=== PATIENT | female | born 1950 | race American Indian/Alaskan Native ===

== ENCOUNTER 2017-03-18 09:17 | Outpatient (CLI) | payer MEDICARE ==
--- NOTE | 2017-03-18 11:22 | Ultrasound Report ---
BILATERAL DIGITAL DIAGNOSTIC MAMMOGRAM with CAD and LEFT BREAST ULTRASOUND: 03/18/17 CLINICAL: Palpable lump in the midline cleavage. COMPARISON:None. FINDINGS: There are bilateral scattered fibroglandular densities. A few bilateral scattered benign calcifications.No mass, architectural distortion or suspicious calcifications . No mammographic finding at a palpable marker in the cleavage. Ultrasound of each cleavage area demonstrated normal fat and no mass, cyst or shadowing. I examined the patient myself and felt no mass or lump. The perceived lump is apparently the sternum. IMPRESSION: Negative mammogram and negative ultrasound of the cleavage. BI-RADS CATEGORY: 2 -- Benign RECOMMENDATION: Clinical follow-up of the palpable area and routine mammographic screening in one year. ACR BI-RADS MAMMOGRAPHIC CODES: 0 = Needs additional imaging evaluation; 1 = Negative; 2 = Benign; 3 = Probably benign; 4 = Suspicious; 5 = Malignant; 6 = Known biopsy-proven malignancy COMMENT: 1. Dense breast tissue, i.e., adenosis, fibrocystic changes, etc., may obscure an underlying neoplasm. 2. Approximately 10% of cancers are not detected with mammography. 3. A negative mammography report should not delay biopsy if a clinically suspicious mass is present. COMMENT: Patient follow-up letters are generated by our [employer] application.
== END 2017-03-18 09:18 | disposition home or self-care (01) ==
LOC: SPVWC 09:17
PROVIDERS: ATTEND Advanced Practice Midwife
DX: N60.01 Solitary cyst of right breast (principal); R92.1 Mammographic calcification found on diagnostic imaging of breast; N63 Unspecified lump in breast
CPT/HCPCS: 76642; G0204; 77066

== ENCOUNTER 2019-01-06 09:04 | Emergency (ER) | payer MEDICARE ==
[2019-01-06] MEDS ORDERED: ZOFRAN ODT PO ONE (09:37)
[2019-01-06] MEDS ORDERED: PEPCID PO ONE (09:37)
[2019-01-06] MEDS ORDERED: BENTYL IM ONE (09:37)
[2019-01-06] MEDS ORDERED: ALUM-MAG HYDROX-SIMETH 200-200-20MG/5ML PO ONE (09:38)
[2019-01-06 09:58] LABS: Basophils % (Auto) 0.6 % (0.0-1.8); Eosinophils # (Auto) 0.2 K/mm3 (0.0-0.4); Eosinophils % (Auto) 2.7 % (0.0-4.3); Hematocrit 36.2 % (30.3-42.9); Hemoglobin 12.3 gm/dl (10.1-14.3); Lymphocytes # (Auto) 2.9 K/mm3 (1.2-5.4); Lymphocytes % (Auto) 45.2 % (13.4-35.0); Mean Corpuscular HGB Conc 34 % (30-34); Mean Corpuscular Volume 89 fl (79-97); Monocytes # (Auto) 0.4 K/mm3 (0.0-0.8); Monocytes % (Auto) 6.5 % (0.0-7.3); Platelet Count 181 K/mm3 (140-440); Red Blood Count 4.07 M/mm3 (3.65-5.03); Red Cell Distribution Width 13.9 % (13.2-15.2)
--- NOTE | 2019-01-06 10:14 | Emergency Department Report ---
ED Abdominal Pain HPI - General Chief Complaint: Abdominal Pain Stated Complaint: STOMACH PAIN Time Seen by Provider: 01/06/19 09:29 Source: patient Mode of arrival: Ambulatory Limitations: No Limitations - History of Present Illness Initial Comments: Patient is a 68-year-old Ele female past history of GERD who states for the past 3 days she's had some epigastric discomfort that she states is a burning sensation. She states this started after eating some chicken. Patient states she has some very mild nausea but had not had any vomiting or diarrhea. Patient denies fevers chills. Patient also has no history of any cough congestion. Patient is taking multiple mrvr-[id number] medications including Maalox, Tums and Pepcid and Pepto-Bismol with no relief. Severity scale (0 -10): 9 - Related Data Previous Rx's Medication Instructions Recorded Last Taken Type Cyclobenzaprine [Flexeril 10mg] 10 mg PO QHS #15 tablet 06/28/14 Unknown Rx HYDROcodone/APAP 5-325 [[place] 1 each PO Q6HR PRN #20 tablet 06/28/14 Unknown Rx 5/325] Naproxen [Naprosyn] 500 mg PO BID #20 tablet 07/26/16 Unknown Rx amLODIPine [Norvasc] 5 mg PO DAILY #30 tab 07/26/16 Unknown Rx Ondansetron [Zofran Odt] 4 mg PO Q8HR PRN #10 tab.rapdis 01/06/19 Unknown Rx Sucralfate [Carafate] 1 gm PO Q6HR 30 Days udc 01/06/19 Unknown Rx Allergies Allergy/AdvReac Type Severity Reaction Status Date / Time aspirin Allergy Vomiting Verified 06/28/14 09:29 morphine Allergy Vomiting Verified 06/28/14 09:29 msg Allergy Vomiting Uncoded 06/28/14 09:29 ED Review of Systems ROS: Stated complaint: STOMACH PAIN Other details as noted in HPI Comment: All other systems reviewed and negative ED Past Medical Hx - Past Medical History Previous Medical History?: Yes Hx Hypertension: Yes Additional medical history: high cholesterol - Surgical History Past Surgical History?: Yes Additional Surgical History: - Social History Smoking Status: Current Every Day Smoker Substance Use Type: None - Medications Home Medications: Home Medications Medication Instructions Recorded Confirmed Last Taken Type Cyclobenzaprine [Flexeril 10mg] 10 mg PO QHS #15 tablet 06/28/14 Unknown Rx HYDROcodone/APAP 5-325 [[place] 1 each PO Q6HR PRN #20 tablet 06/28/14 Unknown Rx 5/325] Naproxen [Naprosyn] 500 mg PO BID #20 tablet 07/26/16 Unknown Rx amLODIPine [Norvasc] 5 mg PO DAILY #30 tab 07/26/16 Unknown Rx Ondansetron [Zofran Odt] 4 mg PO Q8HR PRN #10 tab.rapdis 01/06/19 Unknown Rx Sucralfate [Carafate] 1 gm PO Q6HR 30 Days udc 01/06/19 Unknown Rx ED Physical Exam - General Limitations: No Limitations General appearance: alert, in no apparent distress - Head Head exam: Present: atraumatic, normocephalic - Eye Eye exam: Present: normal appearance - ENT ENT exam: Present: mucous membranes moist - Neck Neck exam: Present: normal inspection - Respiratory Respiratory exam: Present: normal lung sounds bilaterally. Absent: respiratory distress, wheezes, rales, rhonchi - Cardiovascular Cardiovascular Exam: Present: regular rate, normal rhythm. Absent: systolic murmur, diastolic murmur, rubs, gallop - GI/Abdominal GI/Abdominal exam: Present: soft, tenderness (epigastric), normal bowel sounds. Absent: distended, guarding, rebound - Extremities Exam Extremities exam: Present: normal inspection - Back Exam Back exam: Present: normal inspection - Neurological Exam Neurological exam: Present: alert, oriented X3 - Psychiatric Psychiatric exam: Present: normal affect, normal mood - Skin Skin exam: Present: warm, dry, intact, normal color. Absent: rash ED Course Vital Signs 01/06/19 09:09 Temperature 97.9 F Pulse Rate 96 H Respiratory 18 Rate Blood Pressure 151/84 O2 Sat by Pulse 97 Oximetry ED Medical Decision Making - Lab Data Result diagrams: 01/06/19 09:42 01/06/19 09:42 Lab Results 01/06/19 01/06/19 Range/Units 09:42 09:42 WBC 6.4 (4.5-11.0) K/mm3 RBC 4.07 (3.65-5.03) M/mm3 Hgb 12.3 (10.1-14.3) gm/dl Hct 36.2 (30.3-42.9) % MCV 89 (79-97) fl MCH 30 (28-32) pg MCHC 34 (30-34) % RDW 13.9 (13.2-15.2) % Plt Count 181 (140-440) K/mm3 Lymph % (Auto) 45.2 H (13.4-35.0) % Cocke % (Auto) 6.5 (0.0-7.3) % Eos % (Auto) 2.7 (0.0-4.3) % Baso % (Auto) 0.6 (0.0-1.8) % Lymph # 2.9 (1.2-5.4) K/mm3 Cocke # 0.4 (0.0-0.8) K/mm3 Eos # 0.2 (0.0-0.4) K/mm3 Baso # 0.0 (0.0-0.1) K/mm3 Seg Neutrophils % 45.0 (40.0-70.0) % Seg Neutrophils # 2.9 (1.8-7.7) K/mm3 Sodium 141 (137-145) mmol/L Potassium 4.5 (3.6-5.0) mmol/L Chloride 101.1 (98-107) mmol/L Carbon Dioxide 27 (22-30) mmol/L Anion Gap 17 mmol/L BUN 13 (7-17) mg/dL Creatinine 0.9 (0.7-1.2) mg/dL Estimated GFR > 60 ml/min BUN/Creatinine Ratio 14 % Glucose 117 H (65-100) mg/dL Calcium 9.7 (8.4-10.2) mg/dL Total Bilirubin 0.50 (0.1-1.2) mg/dL AST 11 (5-40) units/L ALT 9 (7-56) units/L Alkaline Phosphatase 71 (35-129) units/L Total Protein 7.3 (6.3-8.2) g/dL Albumin 4.0 (3.9-5) g/dL Albumin/Globulin Ratio 1.2 % Lipase 19 (13-60) units/L - Medical Decision Making Patient's laboratory studies are within normal limits. Patient to be started on Carafate and Zofran be discharged home. Critical care attestation.: If time is entered above; I have spent that time in minutes in the direct care of this critically ill patient, excluding procedure time. ED Disposition Clinical Impression: GERD (gastroesophageal reflux disease) Disposition: DC-01 TO HOME OR SELFCARE Is pt being admited?: No Does the pt Need Aspirin: No Condition: Stable Instructions: Diet for Ulcers and Gastritis (ED), Gastroesophageal Reflux Disease (ED) Referrals: DANIAL LOW MD [Staff Physician] - 3-5 Days Time of Disposition: 10:45
[2019-01-06 10:19] LABS: Alanine Aminotransferase 9 units/L (7-56); BUN/Creatinine Ratio 14; Blood Urea Nitrogen 13 mg/dL (7-17); Calcium 9.7 mg/dL (8.4-10.2); Hemolysis Index 8
[2019-01-06 11:13] VITALS: BP 142/86
== END 2019-01-06 11:12 | disposition home or self-care (01) ==
LOC: ED 09:04
DX: K21.9 Gastro-esophageal reflux disease without esophagitis (principal); E78.00 Pure hypercholesterolemia, unspecified; I10 Essential (primary) hypertension; Z88.8 Allergy status to other drugs, medicaments and biological substances; Z88.5 Allergy status to narcotic agent
CPT/HCPCS: 36415; 80053; 83690; 85025; 96372; 99283; J0500; Q0162

== ENCOUNTER 2019-08-20 22:25 | Emergency (ER) | payer MEDICARE ==
[2019-08-20 22:56] VITALS: BP 164/116
--- NOTE | 2019-08-20 23:36 | XRay Report ---
LEFT FOOT, 3 VIEWS INDICATION / CLINICAL INFORMATION: puncture wound with needle. COMPARISON: None available. FINDINGS: There is a thin metallic foreign object in the subcutaneous tissue of the heel, consistent with histo ry of patient accidentally stepping on a needle. I believe the tip of the needle is abutting or just within the inferior surface of the calcaneus. The remainder the foot is unremarkable. IMPRESSION: A needle is in the soft tissues of the heel. The tip appears to be barely within the plan tar surface of the calcaneal bone. Signer Name: Meli Tracy MD Signed: 08/20/2019 11:31 PM Workstation Name: [id number]
[2019-08-21] MEDS ORDERED: TETANUS,DIPH,PERTUSS(ACELL) VACCINE 0.5 ML SYRINGE IM ONE ×2 (00:11→02:57)
[2019-08-21] MEDS ORDERED: LIDOCAINE-MPF (1%) 10 MG/1 ML VIAL 5 ML INFILTRATI ONE (00:11)
[2019-08-21] MEDS ORDERED: ACETAMINOPHEN 500 MG TAB PO ONE (00:11)
[2019-08-21] MEDS ORDERED: NEOMY 3.5 MG/BACIT 400 UNITS/POLY B 5000 UNITS/GM OINT PACKET TP ONE (02:31)
--- NOTE | 2019-08-21 02:44 | Emergency Department Report ---
<REZA HARRIS - Last Filed: 08/21/19 02:39> ED Lower Extremity HPI - General Chief Complaint: Extremity Injury, Lower Stated Complaint: NEEDLE BROKE OFF IN FOOT Source: patient Mode of arrival: Ambulatory Limitations: No Limitations - History of Present Illness Initial Comments: Patient is a 69-year-old -[place] female with a history of hypertension who presents to the ED with complaint of acute onset persistent left plantar foot pain due to a puncture wound after she stepped onto a sharp needle that was in the carpet about 2 hours ago. Patient states that the needle is stuck and embedded in the plantar aspect of her left foot, and that the pain is worse with ambulation or bearing weight on the left foot. Patient states that she is not up-to-date with her tetanus vaccinations. Patient denies numbness or tingling or weakness of left foot or left ankle. MD Complaint: foot injury (left plantar foot puncture wound), other (Stepped on a sharp needle that got stuck in the plantar foot) -: Sudden, hour(s) (2) Injury: Foot: Left (Left plantar foot puncture wound with foreign body) Type of Injury: laceration (Puncture wound), puncture wound Place: home Severity: severe Severity scale (0 -10): 7 Improves With: rest Worsens With: weight bearing, movement, palpation Context: direct blow, stepped on nail (stepped on a needle) Associated Symptoms: able to partially bear weight - Related Data Previous Rx's Medication Instructions Recorded Last Taken Type Cyclobenzaprine [Flexeril 10mg] 10 mg PO QHS #15 tablet 06/28/14 Unknown Rx HYDROcodone/APAP 5-325 [[place] 1 each PO Q6HR PRN #20 tablet 06/28/14 Unknown Rx 5/325] amLODIPine [Norvasc] 5 mg PO DAILY #30 tab 07/26/16 Unknown Rx Ondansetron [Zofran Odt] 4 mg PO Q8HR PRN #10 tab.rapdis 01/06/19 Unknown Rx Sucralfate [Carafate] 1 gm PO Q6HR 30 Days udc 01/06/19 Unknown Rx Ciprofloxacin HCl [Ciprofloxacin 500 mg PO Q12HR #20 tab 08/21/19 Unknown Rx TAB] Naproxen [Naprosyn TAB] 500 mg PO Q12H PRN #20 tablet 08/21/19 Unknown Rx Ondansetron [Zofran Odt] 4 mg PO Q6HR PRN #15 tab.rapdis 08/21/19 Unknown Rx traMADol [Ultram] 50 mg PO Q6HR PRN #12 tablet 08/21/19 Unknown Rx Allergies Allergy/AdvReac Type Severity Reaction Status Date / Time aspirin Allergy Vomiting Verified 06/28/14 09:29 morphine Allergy Vomiting Verified 06/28/14 09:29 msg Allergy Vomiting Uncoded 06/28/14 09:29 ED Review of Systems Constitutional: denies: chills, fever Eyes: denies: eye pain, eye discharge, vision change ENT: denies: ear pain, throat pain Respiratory: denies: cough, shortness of breath, wheezing Cardiovascular: denies: chest pain, palpitations Endocrine: no symptoms reported Gastrointestinal: denies: abdominal pain, nausea, diarrhea Genitourinary: denies: urgency, dysuria, discharge Musculoskeletal: arthralgia (left plantar foot pain due to a puncture wound and foreign body in plantar foot). denies: back pain, joint swelling Skin: other (Left plantar foot puncture wound with foreign body embedded in the plantar aspect of foot). denies: rash, lesions Neurological: denies: headache, weakness, paresthesias Psychiatric: denies: anxiety, depression Hematological/Lymphatic: denies: easy bleeding, easy bruising ED Past Medical Hx - Past Medical History Hx Hypertension: Yes Additional medical history: high cholesterol - Surgical History Additional Surgical History: - Social History Smoking Status: Never Smoker Substance Use Type: None - Medications Home Medications: Home Medications Medication Instructions Recorded Confirmed Last Taken Type Cyclobenzaprine [Flexeril 10mg] 10 mg PO QHS #15 tablet 06/28/14 Unknown Rx HYDROcodone/APAP 5-325 [[place] 1 each PO Q6HR PRN #20 tablet 06/28/14 Unknown Rx 5/325] amLODIPine [Norvasc] 5 mg PO DAILY #30 tab 07/26/16 Unknown Rx Ondansetron [Zofran Odt] 4 mg PO Q8HR PRN #10 tab.rapdis 01/06/19 Unknown Rx Sucralfate [Carafate] 1 gm PO Q6HR 30 Days udc 01/06/19 Unknown Rx Ciprofloxacin HCl [Ciprofloxacin 500 mg PO Q12HR #20 tab 08/21/19 Unknown Rx TAB] Naproxen [Naprosyn TAB] 500 mg PO Q12H PRN #20 tablet 08/21/19 Unknown Rx Ondansetron [Zofran Odt] 4 mg PO Q6HR PRN #15 tab.rapdis 08/21/19 Unknown Rx traMADol [Ultram] 50 mg PO Q6HR PRN #12 tablet 08/21/19 Unknown Rx ED Physical Exam - General Limitations: No Limitations General appearance: alert, in no apparent distress - Head Head exam: Present: atraumatic, normocephalic, normal inspection - Eye Eye exam: Present: normal appearance, PERRL, EOMI Pupils: Present: normal accommodation - ENT ENT exam: Present: normal exam, normal orophraynx, mucous membranes moist, TM's normal bilaterally, normal external ear exam - Neck Neck exam: Present: normal inspection, full ROM - Respiratory Respiratory exam: Present: normal lung sounds bilaterally. Absent: respiratory distress, wheezes, rales, chest wall tenderness, decreased breath sounds - Cardiovascular Cardiovascular Exam: Present: regular rate, normal rhythm, normal heart sounds. Absent: systolic murmur, diastolic murmur, rubs, gallop - GI/Abdominal GI/Abdominal exam: Present: soft, normal bowel sounds. Absent: tenderness, guarding, rebound, hypoactive bowel sounds - Extremities Exam Extremities exam: Present: normal inspection, tenderness (Left plantar foot tenderness due to puncture wound and embedded foreign body), normal capillary refill - Back Exam Back exam: Present: normal inspection, full ROM - Neurological Exam Neurological exam: Present: alert, oriented X3, CN II-XII intact, normal gait, reflexes normal - Psychiatric Psychiatric exam: Present: normal affect, normal mood - Skin Skin exam: Present: warm, dry, intact, normal color, other (Puncture wound of left plantar foot due to foreign body in left plantar foot). Absent: rash ED Course - Reevaluation(s) Reevaluation #1: 08/21/19 02:46 This is a 69-year-old female who presented to the ED with the left plantar foot puncture wound and an monique embedded in the soft tissues of the left plantar foot after she accidentally stepped on a needle on the carpet over 12 hours ago. In the ED, patient is alert and oriented 3 and is not in distress. Patient was treated for pain and also received booster tetanus vaccination. Left foot x-ray shows a needle in the soft tissues of the heel. The tip appears to be barely within the plantar surface of the calcaneal bone. The needle was probed after a local anesthetic was applied to the area. Removal of the needle was not successful in the ED. Therefore the x-ray images of the left foot was sent to the orthopedic surgeon property utilization officer Dr. Messina was advised the patient left foot was splinted, and the patient be [id number], and to follow-up with his office for further evaluation. Patient's left foot was splinted with Waldo wrap and patient given crutches and advised to contact Dr. Messina's office first thing in the morning to schedule an appointment for follow-up. Patient was advised not to bear weight on the left foot. Patient was discharged home on pain medications and advised follow-up with Dr. Messina's office for further evaluation. ED Lower Extremity MDM - Radiology Data Radiology results: report reviewed, image reviewed Findings [address] [address] XRay Report Signed Patient: ALY WHITNEY MR#: [id number] : 1950 Acct:[id number] Age/Sex: 69 / F ADM Date: 08/20/19 Loc: ED Attending Dr: Ordering Physician: WALDO PEREZ NP Date of Service: 08/20/19 Procedure(s): XR foot 3+V LT Accession Number(s): [id number] cc: WALDO PEREZ NP Fluoro Time In Minutes: LEFT FOOT, 3 VIEWS INDICATION / CLINICAL INFORMATION: puncture wound with needle. COMPARISON: None available. FINDINGS: There is a thin metallic foreign object in the subcutaneous tissue of the heel, consistent with history of patient accidentally stepping on a needle. I believe the tip of the needle is abutting or just within the inferior surface of the calcaneus. The remainder the foot is unremarkable. IMPRESSION: A needle is in the soft tissues of the heel. The tip appears to be barely within the plantar surface of the calcaneal bone. Signer Name: Meli Tracy MD Signed: 08/20/2019 11:31 PM Workstation Name: [id number] Transcribed By: Dictated By: Meli Tracy MD Electronically Authenticated By: Meli Tracy MD Signed Date/Time: 08/20/192330 DD/ 27 TD/TT: - Medical Decision Making This is a 69-year-old female who presented to the ED with the left plantar foot puncture wound and an monique embedded in the soft tissues of the left plantar foot after she accidentally stepped on a needle on the carpet over 12 hours ago. In the ED, patient is alert and oriented 3 and is not in distress. Patient was treated for pain and also received booster tetanus vaccination. Left foot x-ray shows a needle in the soft tissues of the heel. The tip appears to be barely within the plantar surface of the calcaneal bone. The needle was probed after a local anesthetic was applied to the area. Removal of the needle was not successful in the ED. Therefore the x-ray images of the left foot was sent to the orthopedic surgeon property utilization officer Dr. Messina was advised the patient left foot was splinted, and the patient be [id number], and to follow-up with his office for further evaluation. Patient's left foot was splinted with Waldo wrap and patient given crutches and advised to contact Dr. Messina's office first thing in the morning to schedule an appointment for follow-up. Patient was advised not to bear weight on the left foot. Patient was discharged home on pain medications and advised follow-up with Dr. Messina's office for further evaluation - Differential Diagnosis Left foot puncture wound; Foreign body in left foot ED Disposition Clinical Impression: Puncture wound of left foot with foreign body Qualifiers: Encounter type: initial encounter Qualified Code(s): S91.342A - Puncture wound with foreign body, left foot, initial encounter Disposition: DC-01 TO HOME OR SELFCARE Is pt being admited?: No Does the pt Need Aspirin: No Condition: Stable Instructions: Soft Tissue Foreign Body (ED), Puncture Wound (ED) Additional Instructions: Take medications with food, drink plenty of fluids, follow up with Dr. Messina as advised. Contact his office first thing in the morning to schedule an appointment Prescriptions: Ciprofloxacin HCl [Ciprofloxacin TAB] 500 mg PO Q12HR #20 tab Naproxen [Naprosyn TAB] 500 mg PO Q12H PRN #20 tablet PRN Reason: Pain , Severe (7-10) traMADol [Ultram] 50 mg PO Q6HR PRN #12 tablet PRN Reason: Pain Ondansetron [Zofran Odt] 4 mg PO Q6HR PRN #15 tab.rapdis PRN Reason: Nausea Referrals: GEOVANNA MESSINA MD [Staff Physician] - [facility] Time of Disposition: 02:51 Print Language: WELSH <SAILAJA TAN - Last Filed: 08/21/19 04:02> ED Review of Systems ROS: Stated complaint: NEEDLE BROKE OFF IN FOOT Other details as noted in HPI ED Course Vital Signs 08/20/19 22:53 Temperature 98.6 F Pulse Rate 99 H Respiratory 18 Rate Blood Pressure 164/116 O2 Sat by Pulse 99 Oximetry - Consultations Consultation #1: 08/21/19 management was discussed with Dr messina prior to d/c. Instructed to splint, make non weight bearing and f/u. pt may need OR removal of foreign body Critical care attestation.: If time is entered above; I have spent that time in minutes in the direct care of this critically ill patient, excluding procedure time.
[2019-08-21] MEDS ORDERED: ACETAMINOPHEN 500 MG TAB ONE (02:57)
== END 2019-08-20 23:35 | disposition home or self-care (01) ==
LOC: ED 22:25
DX: S91.342A Puncture wound with foreign body, left foot, initial encounter (principal); I10 Essential (primary) hypertension; E78.00 Pure hypercholesterolemia, unspecified; Z79.899 Other long term (current) drug therapy; Z88.6 Allergy status to analgesic agent; Z88.5 Allergy status to narcotic agent; Z88.8 Allergy status to other drugs, medicaments and biological substances; W46.1XXA Contact with contaminated hypodermic needle, initial encounter; Y93.89 Activity, other specified; Y92.009 Unspecified place in unspecified non-institutional (private) residence as the place of occurrence of the external cause; Y99.8 Other external cause status
CPT/HCPCS: 90471; 90715; A6250

== ENCOUNTER 2021-09-18 10:48 | Emergency (ER) | payer MEDICAID, MEDICARE ==
--- NOTE | 2021-09-18 11:43 | Emergency Department Report ---
ED N/V/D HPI - General Chief complaint: Nausea/Vomiting/Diarrhea Stated complaint: STOMACH PAIN Time Seen by Provider: 09/18/21 11:01 Source: patient Mode of arrival: Ambulatory Limitations: No Limitations - History of Present Illness Initial comments: Chief complaint: Diarrhea for 4 days HPI: This is a 71-year-old female with history of hypertension, gastritis, GERD who presents with diarrhea and stomach upset for several days. She has history of food intolerance. She has not been compliant with PPI which she takes daily. She has had severe diarrhea. She denies pain GI fever. She is actually quite hungry. She was finally able to have chicken soup without immediate stool. She thinks she has a stomach nug. She self treated Kaopectate and electrolyte containing fluid. MD complaint: diarrhea -: Gradual, days(s) (4 days) Description of Diarrhea: water Associated Abdominal Pain: No Severity: moderate Pain Scale: 0 Worsens with: other (Diarrhea after eating) Context: possible food poisoning - Related Data Previous Rx's Medication Instructions Recorded Last Taken Type Cyclobenzaprine [Flexeril 10mg] 10 mg PO QHS #15 tablet 06/28/14 Unknown Rx HYDROcodone/APAP 5-325 [Circle 1 each PO Q6HR PRN #20 tablet 06/28/14 Unknown Rx 5/325] amLODIPine [Norvasc] 5 mg PO DAILY #30 tab 07/26/16 Unknown Rx Ondansetron [Zofran Odt] 4 mg PO Q8HR PRN #10 tab.rapdis 01/06/19 Unknown Rx Sucralfate [Carafate] 1 gm PO Q6HR 30 Days udc 01/06/19 Unknown Rx Ciprofloxacin HCl [Ciprofloxacin 500 mg PO Q12HR #20 tab 08/21/19 Unknown Rx TAB] Naproxen [Naprosyn TAB] 500 mg PO Q12H PRN #20 tablet 08/21/19 Unknown Rx Ondansetron [Zofran Odt] 4 mg PO Q6HR PRN #15 tab.rapdis 08/21/19 Unknown Rx traMADoL [Ultram] 50 mg PO Q6HR PRN #12 tablet 08/21/19 Unknown Rx Lansoprazole [Prevacid] 30 mg PO BID #30 colt. 04/21/21 Unknown Rx Ciprofloxacin HCl 500 mg PO BID 3 Days #6 tablet 09/18/21 Unknown Rx Loperamide [Imodium] 2 tab PO QID 2 Days #16 capsule 09/18/21 Unknown Rx Allergies Allergy/AdvReac Type Severity Reaction Status Date / Time aspirin Allergy Vomiting Verified 06/28/14 09:29 morphine Allergy Vomiting Verified 06/28/14 09:29 msg Allergy Vomiting Uncoded 06/28/14 09:29 ED Review of Systems ROS: Stated complaint: STOMACH PAIN Other details as noted in HPI Comment: All other systems reviewed and negative Constitutional: denies: chills, fever, malaise Respiratory: denies: cough, shortness of breath Cardiovascular: denies: chest pain Gastrointestinal: diarrhea. denies: abdominal pain, nausea, vomiting ED Past Medical Hx - Past Medical History Previous Medical History?: Yes Hx Hypertension: Yes Additional medical history: high cholesterol - Surgical History Past Surgical History?: Yes Additional Surgical History: - Social History Smoking Status: Never Smoker Substance Use Type: None - Medications Home Medications: Home Medications Medication Instructions Recorded Confirmed Last Taken Type Cyclobenzaprine [Flexeril 10mg] 10 mg PO QHS #15 tablet 06/28/14 Unknown Rx HYDROcodone/APAP 5-325 [Circle 1 each PO Q6HR PRN #20 tablet 06/28/14 Unknown Rx 5/325] amLODIPine [Norvasc] 5 mg PO DAILY #30 tab 07/26/16 Unknown Rx Ondansetron [Zofran Odt] 4 mg PO Q8HR PRN #10 tab.rapdis 01/06/19 Unknown Rx Sucralfate [Carafate] 1 gm PO Q6HR 30 Days udc 01/06/19 Unknown Rx Ciprofloxacin HCl [Ciprofloxacin 500 mg PO Q12HR #20 tab 08/21/19 Unknown Rx TAB] Naproxen [Naprosyn TAB] 500 mg PO Q12H PRN #20 tablet 08/21/19 Unknown Rx Ondansetron [Zofran Odt] 4 mg PO Q6HR PRN #15 tab.rapdis 08/21/19 Unknown Rx traMADoL [Ultram] 50 mg PO Q6HR PRN #12 tablet 08/21/19 Unknown Rx Lansoprazole [Prevacid] 30 mg PO BID #30 colt. 04/21/21 Unknown Rx Ciprofloxacin HCl 500 mg PO BID 3 Days #6 tablet 09/18/21 Unknown Rx Loperamide [Imodium] 2 tab PO QID 2 Days #16 capsule 09/18/21 Unknown Rx ED Physical Exam - General Limitations: No Limitations General appearance: alert, in no apparent distress, other (Well-appearing no acute distress) - Head Head exam: Present: atraumatic, normocephalic - Eye Eye exam: Present: normal appearance - ENT ENT exam: Present: mucous membranes moist - Neck Neck exam: Present: normal inspection, full ROM - Respiratory Respiratory exam: Present: normal lung sounds bilaterally. Absent: respiratory distress, wheezes, rales, rhonchi - Cardiovascular Cardiovascular Exam: Present: regular rate, normal rhythm, normal heart sounds. Absent: systolic murmur, diastolic murmur, rubs, gallop - GI/Abdominal GI/Abdominal exam: Present: soft, normal bowel sounds. Absent: distended, tenderness, guarding, rebound - Extremities Exam Extremities exam: Present: normal inspection - Neurological Exam Neurological exam: Present: alert, oriented X3 - Psychiatric Psychiatric exam: Present: normal affect, normal mood - Skin Skin exam: Present: warm, dry, intact, normal color. Absent: rash ED Course Vital Signs 09/18/21 10:55 Temperature 98.3 F Pulse Rate 84 Respiratory 18 Rate Blood Pressure 141/66 [Left] O2 Sat by Pulse 99 Oximetry ED Medical Decision Making - Medical Decision Making Current impression food poisoning with significant diarrhea began 3 days antibiotics are indicated. 3-day course of ciprofloxacin prescribed. Loperamide also prescribed. Critical care attestation.: If time is entered above; I have spent that time in minutes in the direct care of this critically ill patient, excluding procedure time. ED Disposition Clinical Impression: Food poisoning Disposition: 01 HOME / SELF CARE / HOMELESS Is pt being admited?: No Does the pt Need Aspirin: No Condition: Stable Instructions: Food Poisoning Prescriptions: Ciprofloxacin HCl 500 mg PO BID 3 Days #6 tablet Loperamide [Imodium] 2 tab PO QID 2 Days #16 capsule
[2021-09-18 12:59] VITALS: BP 117/77
== END 2021-09-18 12:58 | disposition home or self-care (01) ==
LOC: ED 10:48
DX: A05.9 Bacterial foodborne intoxication, unspecified (principal); I10 Essential (primary) hypertension; K21.9 Gastro-esophageal reflux disease without esophagitis; K90.49 Malabsorption due to intolerance, not elsewhere classified; E78.00 Pure hypercholesterolemia, unspecified; F17.200 Nicotine dependence, unspecified, uncomplicated; Z88.5 Allergy status to narcotic agent; Z88.8 Allergy status to other drugs, medicaments and biological substances; Z91.018 Allergy to other foods
CPT/HCPCS: 99282

== ENCOUNTER 2022-06-08 08:49 | Emergency (ER) | payer MEDICARE, MEDICAID ==
--- NOTE | 2022-06-08 10:53 | Cat Scan Report ---
CT BRAIN: 06/08/2022 INDICATION / CLINICAL INFORMATION: head injury. COMPARISON: None available. FINDINGS: BRAIN/INTRACRANIAL STRUCTURES: Unenhanced CT images of the brain demonstrate no evidence of acute abn ormality. Ventricles and sulci are prominent in size, consistent with age-related atrophic change. Extensive chronic white matter hypoattenuation is present throughout the cerebral hemispheric white m atter. There is no evidence of acute large vessel ischemic injury, hemorrhage, or mass. There are no abnorma l extra-axial fluid collections. EXTRACRANIAL STRUCTURES: Unremarkable. IMPRESSION: No acute abnormality. Chronic and age-related changes. All CT scans at this location are performed using dose reduction to ALARA by means of automated expos ure control. Signer Name: Shankar Navarro MD Signed: 06/08/2022 10:48 AM Workstation Name: [id number]
[2022-06-08 11:05] LABS: Hematocrit 33.7 % (30.3-42.9); Hemoglobin 11.1 gm/dl (10.1-14.3); Mean Corpuscular HGB Conc 33 % (30-34); Mean Corpuscular Volume 92 fl (79-97); Platelet Count 163 K/mm3 (140-440); Red Blood Count 3.66 M/mm3 (3.65-5.03); Red Cell Distribution Width 14.1 % (13.2-15.2)
[2022-06-08 11:16] LABS: Alanine Aminotransferase 10 units/L (7-56); Albumin 3.9 g/dL (3.9-5); BUN/Creatinine Ratio 34; Blood Urea Nitrogen 34 mg/dL (7-17); Calcium 9.2 mg/dL (8.4-10.2); Hemolysis Index 3
--- NOTE | 2022-06-08 22:10 | Emergency Department Report ---
ED Dizziness HPI - General Chief Complaint: Syncope Stated Complaint: HEAD INJURY 2 DAYS AGO/LIGHT HEADED Time Seen by Provider: 06/08/22 21:51 Source: patient Mode of arrival: Ambulatory Limitations: No Limitations - History of Present Illness Initial Comments: 72 yo F with h/o HTn currently on Amlodipine who present for evaluation after a fall 2 days while at grocery store. Pt reports dizziness before the fall. She described it as falling backward and then struck the back of her head. EMS was called and patient screened to be okay. She says she has not eating anything all day and was just at the store to get some water before the symptoms. Pt also mentioned that she has been trying fats free diet and trying to eat healthy. She also mentioned that she has not taken her antihypertensive medication before the fall either. No other modifying or associated factors reported. MD Complaint: dizziness - Related Data Previous Rx's Medication Instructions Recorded Last Taken Type Cyclobenzaprine [Flexeril 10mg] 10 mg PO QHS #15 tablet 06/28/14 Unknown Rx HYDROcodone/APAP 5-325 [[place] 1 each PO Q6HR PRN #20 tablet 06/28/14 Unknown Rx 5/325] amLODIPine [Norvasc] 5 mg PO DAILY #30 tab 07/26/16 Unknown Rx Ondansetron [Zofran Odt] 4 mg PO Q8HR PRN #10 tab.rapdis 01/06/19 Unknown Rx Sucralfate [Carafate] 1 gm PO Q6HR 30 Days udc 01/06/19 Unknown Rx Ciprofloxacin HCl [Ciprofloxacin 500 mg PO Q12HR #20 tab 08/21/19 Unknown Rx TAB] Naproxen [Naprosyn TAB] 500 mg PO Q12H PRN #20 tablet 08/21/19 Unknown Rx Ondansetron [Zofran Odt] 4 mg PO Q6HR PRN #15 tab.rapdis 08/21/19 Unknown Rx traMADoL [Ultram] 50 mg PO Q6HR PRN #12 tablet 08/21/19 Unknown Rx Lansoprazole [Prevacid] 30 mg PO BID #30 capsule. 04/21/21 Unknown Rx Ciprofloxacin HCl 500 mg PO BID 3 Days #6 tablet 09/18/21 Unknown Rx Loperamide [Imodium] 2 tab PO QID 2 Days #16 capsule 09/18/21 Unknown Rx Allergies Allergy/AdvReac Type Severity Reaction Status Date / Time aspirin Allergy Vomiting Verified 06/28/14 09:29 morphine Allergy Vomiting Verified 06/28/14 09:29 msg Allergy Vomiting Uncoded 06/28/14 09:29 ED Review of Systems ROS: Stated complaint: HEAD INJURY 2 DAYS AGO/LIGHT HEADED Other details as noted in HPI Comment: All other systems reviewed and negative Cardiovascular: other (dizziness) Neurological: other (dizziness) ED Past Medical Hx - Past Medical History Hx Hypertension: Yes Additional medical history: high cholesterol - Surgical History Additional Surgical History: - Social History Smoking Status: Never Smoker - Medications Home Medications: Home Medications Medication Instructions Recorded Confirmed Last Taken Type Cyclobenzaprine [Flexeril 10mg] 10 mg PO QHS #15 tablet 06/28/14 Unknown Rx HYDROcodone/APAP 5-325 [[place] 1 each PO Q6HR PRN #20 tablet 06/28/14 Unknown Rx 5/325] amLODIPine [Norvasc] 5 mg PO DAILY #30 tab 07/26/16 Unknown Rx Ondansetron [Zofran Odt] 4 mg PO Q8HR PRN #10 tab.rapdis 01/06/19 Unknown Rx Sucralfate [Carafate] 1 gm PO Q6HR 30 Days udc 01/06/19 Unknown Rx Ciprofloxacin HCl [Ciprofloxacin 500 mg PO Q12HR #20 tab 08/21/19 Unknown Rx TAB] Naproxen [Naprosyn TAB] 500 mg PO Q12H PRN #20 tablet 08/21/19 Unknown Rx Ondansetron [Zofran Odt] 4 mg PO Q6HR PRN #15 tab.rapdis 08/21/19 Unknown Rx traMADoL [Ultram] 50 mg PO Q6HR PRN #12 tablet 08/21/19 Unknown Rx Lansoprazole [Prevacid] 30 mg PO BID #30 capsule.dr 04/21/21 Unknown Rx Ciprofloxacin HCl 500 mg PO BID 3 Days #6 tablet 09/18/21 Unknown Rx Loperamide [Imodium] 2 tab PO QID 2 Days #16 capsule 09/18/21 Unknown Rx ED Physical Exam - General Limitations: No Limitations General appearance: alert, in no apparent distress - Head Head exam: Present: normal inspection - Eye Eye exam: Present: normal appearance Pupils: Present: normal accommodation - ENT ENT exam: Present: normal exam, normal orophraynx, mucous membranes moist - Neck Neck exam: Present: normal inspection, full ROM. Absent: tenderness - Respiratory Respiratory exam: Present: normal lung sounds bilaterally. Absent: respiratory distress, accessory muscle use - Cardiovascular Cardiovascular Exam: Present: regular rate, normal rhythm, normal heart sounds - GI/Abdominal GI/Abdominal exam: Present: soft, normal bowel sounds. Absent: distended, tenderness - Extremities Exam Extremities exam: Present: normal inspection, full ROM, normal capillary refill. Absent: tenderness, pedal edema, joint swelling - Back Exam Back exam: Present: normal inspection. Absent: tenderness - Neurological Exam Neurological exam: Present: alert, oriented X3 - Psychiatric Psychiatric exam: Present: normal affect, normal mood - Skin Skin exam: Present: warm, normal color ED Course Vital Signs 06/08/22 06/08/22 09:10 21:55 Temperature 89.9 F L 98.0 F Pulse Rate 75 67 Respiratory 14 15 Rate Blood Pressure 106/81 Blood Pressure 117/78 [Right] O2 Sat by Pulse 100 99 Oximetry ED Medical Decision Making - Lab Data Result diagrams: 06/08/22 22:00 06/08/22 09:58 - EKG Data -: EKG Interpreted by Vt EKG shows normal: sinus rhythm Rate: normal - EKG Data 06/08/22 22:14 Noted with normal sinus rhythm at a rate of 62 bpm, with normal QT and no ST elevation or depression in this normal ECG. - Medical Decision Making Came in with concern for dizziness associated with fall --even though this is likely as a result of been dehydrated with low energy considering that patient has not eating or drinking all day before the symptoms but could not rule out other differential such as CVA especially posterior stroke considering the presenting dizziness/vertigo, or symptomatic anemia, myocardial infarction, pulmonary embolism considering his recent long travels, anxiety, and hypothyroidism--in order to rule those out I will go ahead and order routine cardiopulmonary work-up that include troponin, EKG, chest x-ray, BNP, CKMB, and CBC, CMP, Urinalysis and thyroid panel for any correctable infectious process or electrolyte abnormality as a cause. Will also order CT brain for any intracranial abnormality as mentioned above. In the meantime will give ivf ns 1L bolus for hydration as most are dehydrated in the hot weather anyway. Lab reviewed to be within normal limits-- except slightly elevated BUN consistent with mild dehydration-- pt reassured CT head with no acute intracranial findings CXR with no acute pulmonary findings -- pt reassure and d/c home to increase daily fluid and eat adequately Critical care attestation.: If time is entered above; I have spent that time in minutes in the direct care of this critically ill patient, excluding procedure time. ED Disposition Clinical Impression: Dizziness, Dehydration Fall Qualifiers: Encounter type: initial encounter Qualified Code(s): W19.XXXA - Unspecified fall, initial encounter Disposition: HOME / SELF CARE / HOMELESS Is pt being admited?: No Does the pt Need Aspirin: No Condition: Stable Instructions: Dehydration, Adult, [id number], Dehydration, Elderly, Dehydration, Elderly, [id number] Additional Instructions: Increase your daily fluid to help your hydration Call and schedule a follow-up with your primary doctor as needed Avoid extreme cold or heat for your general health Call or return to emergency room if your symptoms worsen Referrals: PRIMARY CARE [Primary Care Provider] - 3-5 Days Time of Disposition: 00:21
[2022-06-08 22:16] LABS: Basophils % (Auto) 0.7 % (0.0-1.8); Eosinophils # (Auto) 0.2 K/mm3 (0.0-0.4); Eosinophils % (Auto) 3.2 % (0.0-4.3); Hematocrit 35.4 % (30.3-42.9); Hemoglobin 11.5 gm/dl (10.1-14.3); Lymphocytes # (Auto) 2.7 K/mm3 (1.2-5.4); Lymphocytes % (Auto) 51.5 % (13.4-35.0); Mean Corpuscular HGB Conc 33 % (30-34); Mean Corpuscular Volume 92 fl (79-97); Monocytes # (Auto) 0.4 K/mm3 (0.0-0.8); Platelet Count 181 K/mm3 (140-440); Red Blood Count 3.86 M/mm3 (3.65-5.03); Red Cell Distribution Width 13.9 % (13.2-15.2)
[2022-06-08 22:22] LABS: INR 0.87 (0.87-1.13); Partial Thromboplastin Time 28.3 Sec. (24.2-36.6)
--- NOTE | 2022-06-08 22:43 | XRay Report ---
CHEST 1 VIEW 06/08/2022 10:24 PM INDICATION / CLINICAL INFORMATION: dizziness. COMPARISON: 04/21/21 FINDINGS: SUPPORT DEVICES: None. HEART / MEDIASTINUM: No significant abnormality. LUNGS / PLEURA: No significant pulmonary or pleural abnormality. No pneumothorax. ADDITIONAL FINDINGS: No significant additional findings. IMPRESSION: 1. No acute findings. Signer Name: Steph George MD Signed: 06/08/2022 10:39 PM Workstation Name: [id number]
[2022-06-08 23:30] LABS: Free T4 (Free Thyroxine) 1.37 ng/dL (0.76-1.46)
[2022-06-09 00:32] VITALS: BP 143/85
--- NOTE | 2022-06-09 09:38 | Electrocardiograph Report ---
[facility] Test Date: 2022-06-08 Test Time: 09:19:52 Pat Name: ALY WHITNEY Department: Room: Gender: F [employer]: MARY : 1950 Requested By: ED DOC Order Number: [id number] Reading MD: Dennis Ching Measurements Intervals [place] Rate: 62 P: 42 KS: 156 QRS: 56 QRSD: 77 T: 61 QT: 421 QTc: 428 Interpretive Statements Sinus rhythm Compared to ECG 04/21/2021 11:31:10 No significant changes Electronically Signed On 06-09-2022 9:38:23 EDT by Dennis Ching
== END 2022-06-09 00:30 | disposition home or self-care (01) ==
LOC: ED 08:49
DX: R42 Dizziness and giddiness (principal); E86.0 Dehydration; I10 Essential (primary) hypertension; E78.00 Pure hypercholesterolemia, unspecified; Z98.890 Other specified postprocedural states; Z88.6 Allergy status to analgesic agent; Z88.8 Allergy status to other drugs, medicaments and biological substances; W19.XXXA Unspecified fall, initial encounter; Y93.89 Activity, other specified; Y92.89 Other specified places as the place of occurrence of the external cause; Y99.8 Other external cause status
CPT/HCPCS: 36415; 70450; 71045; 80053; 84439; 84443; 84484; 85025; 85027; 85610; 85730; 93005; 99284